=== PATIENT | male | born 1940 | race Caucasian/White ===

== ENCOUNTER 2017-12-29 18:39 | Emergency (ER) | payer OTHER ==
[~2017-12-29] VITALS: Ht 180.3 cm; Wt 72.6 kg
[2017-12-29] MEDS ORDERED: COZAAR100 MG PO (18:54)
[2017-12-29] MEDS ORDERED: METFORMIN1000 MG PO (18:55)
[2017-12-29] MEDS ORDERED: ZOCOR40 MG PO (18:55)
[2017-12-29] MEDS ORDERED: METOPROLOL SUCC50 M1 PO (18:55)
[2017-12-29] MEDS ORDERED: ASPIRIN ADULT L81 M1 PO (18:55)
[2017-12-29] MEDS ORDERED: FISH OIL 1,0001 EAC4 PO (18:56)
[2017-12-29] MEDS ORDERED: NORVASC10 MG PO (18:56)
[2017-12-29] MEDS ORDERED: DICLOFENAC SOD75 MG PO (18:57)
[2017-12-29 19:16] LABS: BASO % 0.4 % (0.0-1.0); EOS # 0.2 10*3/uL (0.0-0.4); EOS % 1.9 % (1.0-4.0); HEMATOCRIT 36.4 % (42.0-52.0); HEMOGLOBIN 12.6 g/dl (14.0-18.0); LYMPH # 2.2 10*3/uL (1.3-4.4); LYMPH % 24.1 % (27.0-41.0); MEAN CELL VOLUME 88.3 fl (80.0-94.0); MEAN CORPUSCULAR HGB 30.6 pg (27.0-31.0); MEAN CORPUSCULAR HGB CONC 34.6 g/dl (33.0-37.0); MEAN PLATELET VOLUME 9.1 fl (9.6-12.3); MONO # 1.1 10*3/uL (0.1-1.0); NEUT # 5.5 10*3/uL (2.3-7.9); NEUT % 60.3 % (47.0-73.0); PLATELET COUNT AUTOMATED 303 10*3/uL (130-400); RED BLOOD COUNT 4.12 10*6/uL (4.50-5.90); RED CELL DISTRI WIDTH 12.8 % (0-14.5); WHITE BLOOD COUNT 9.2 10*3/uL (4.8-10.8)
[2017-12-29 19:33] LABS: ALBUMIN 3.9 gm/dl (3.1-4.5); CREATININE 1.46 mg/dL (0.70-1.30); POTASSIUM 3.8 mmol/L (3.5-5.1); TOTAL PROTEIN 7.7 gm/dL (6.4-8.2)
== END 2017-12-29 20:00 | disposition short-term general hospital (02) ==
LOC: ED 18:39
PROVIDERS: Emergency Medicine
DX: I63.9 Cerebral infarction, unspecified (principal); Z79.899 Other long term (current) drug therapy; Z88.1 Allergy status to other antibiotic agents; Z79.82 Long term (current) use of aspirin

== ENCOUNTER 2018-08-14 17:06 | Emergency (ER) | payer OTHER ==
[~2018-08-14] VITALS: Wt 81.6 kg
--- NOTE | ~2018-08-14 | EKG ---
[place], [place] ELECTROCARDIOGRAM REPORT NAME: KAITLYNN WILKERSON UNIT #: [id number] ROOM: DOCTOR: EPIPHANY DRAFT REPORT BIRTHDATE: [birth year] [facility] Test Date: 2018-08-14 Test Time: 17:26:08 Pat Name: KAITLYNN WILKERSON Department: Room: Gender: [employer] Professor: Anne Lucas : 1940 Requested By: ZAHEER RODRIGUEZ Order Number: [id number] Reading MD: Ember Schmitt MD Measurements Intervals [place] Rate: 81 P: 75 CT: 219 QRS: 70 QRSD: 120 T: 50 QT: 424 QTc: 493 Interpretive Statements Sinus rhythm Borderline prolonged CT interval IVCD, consider atypical RBBB Electronically Signed On 08-16-2018 7:52:54 PST by Ember Schmitt MD CM:EKGRPT:ELECTROCARDIOGRAM REPORT [id number] ZAHEER RODRIGUEZ EPIPHANY DRAFT REPORT ZAHEER RODRIGUEZ
[~2018-08-14 17:06] MED LIST: ASPIRIN ADULT L81 M1 PO; COZAAR100 MG PO; DICLOFENAC SOD75 MG PO; FISH OIL 1,0001 EAC4 PO; METFORMIN1000 MG PO; METOPROLOL SUCC50 M1 PO; NORVASC10 MG PO; ZOCOR40 MG PO
[2018-08-14 17:34] LABS: BASO # 0.1 10*3/uL (0.0-0.1); EOS # 0.3 10*3/uL (0.0-0.4); EOS % 4.6 % (1.0-4.0); HEMATOCRIT 35.1 % (42.0-52.0); HEMOGLOBIN 11.8 g/dl (14.0-18.0); LYMPH # 2.1 10*3/uL (1.3-4.4); LYMPH % 34.4 % (27.0-41.0); MEAN CORPUSCULAR HGB 30.3 pg (27.0-31.0); MEAN CORPUSCULAR HGB CONC 33.6 g/dl (33.0-37.0); MEAN PLATELET VOLUME 9.3 fl (9.6-12.3); MONO # 0.8 10*3/uL (0.1-1.0); MONO % 12.4 % (3.0-9.0); NEUT # 2.9 10*3/uL (2.3-7.9); NEUT % 47.3 % (47.0-73.0); PLATELET COUNT AUTOMATED 257 10*3/uL (130-400); RED CELL DISTRI WIDTH 12.4 % (0-14.5); WHITE BLOOD COUNT 6.1 10*3/uL (4.8-10.8)
[2018-08-14 17:44] LABS: ACT PARTIAL THROMBO TIME 24.9 SECONDS (20.8-31.5)
[2018-08-14 17:49] LABS: CREATININE 1.55 mg/dL (0.70-1.30); POTASSIUM 4.1 mmol/L (3.5-5.1); TOTAL PROTEIN 7.6 gm/dL (6.4-8.2)
== END 2018-08-14 18:56 | disposition short-term general hospital (02) ==
LOC: ED 17:06
PROVIDERS: Nurse Practitioner
DX: G45.9 Transient cerebral ischemic attack, unspecified (principal); Z86.73 Personal history of transient ischemic attack (TIA), and cerebral infarction without residual deficits; Z88.1 Allergy status to other antibiotic agents; Z79.899 Other long term (current) drug therapy; Z79.82 Long term (current) use of aspirin; Z79.84 Long term (current) use of oral hypoglycemic drugs

== ENCOUNTER → 2021-08-28 | Outpatient (CLI) | payer OTHER | END | disposition home or self-care (01) | LOC: COVID19 16:02 | PROVIDERS: ATTEND Internal Medicine | DX: U07.1 COVID-19 (principal) ==